=== PATIENT | female | born 1985 | race Caucasian/White ===

== ENCOUNTER 2016-12-19 07:40 | Emergency (ER) | payer SELFPAY ==
[~2016-12-19 07:40] MED LIST: ANEXSIA; COMPAZINE10 M PO; DARVOCET-N 1001 TAB; DARVOCET-N 1001 TAB PO; FLEXERIL10 MG; FLEXERIL10 MG PO; FLEXERIL5 MG PO; INDERAL LA120 MG; MAXALT10 MG; MOTRIN800 MG; MULTI-VITAMIN1 TAB; NAPROSYN500 MG; NORCO; NORCO 7.5/325 T1 TAB PO; PRENATAL VITAMI1 TAB; PROMETHAZINE25 MG PO; SKELAXIN800 MG PO; SYMBICORT 80/10.2 GM; SYNTHROID100 MCG PO; TYLENOL W/CODEI1 TA PO; TYLENOL W/CODEI1 TAB PO; ULTRAM50 MG PO; VISTARIL50 MG PO; VITAMIN D50000 UNIT PO; Vitamin B12 PO
[2016-12-19] MEDS ORDERED: NO HOME MEDICATION XX (07:45)
[2016-12-19] MEDS ORDERED: SYNTHROID (07:47)
[2016-12-19] MEDS ORDERED: DEPO-PROVE150 MG/1 M (07:47)
[2016-12-19] MEDS ORDERED: METFORMIN (07:47)
[2016-12-19 08:21] LABS: URINE BILIRUBIN SMALL (NEG); URINE BLOOD NEGATIVE (NEG); URINE GLUCOSE (UA) NEGATIVE (NEG); URINE KETONE NEGATIVE (NEG); URINE LEUKOCYTE ESTERASE NEGATIVE (NEG); URINE NITRITE NEGATIVE (NEG); URINE PROTEIN MODERATE (NEG)
[2016-12-19 08:22] LABS: URINE APPEARANCE HAZY; URINE COLOR DARK YELLOW
[2016-12-19 08:31] LABS: BASO % 0.1 % (0-2); EOS % 0.3 % (0-7); HCT-HEMATOCRIT 42.8 % (34.0-49.0); HGB-HEMOGLOBIN 15.1 gm/dl (12.0-15.5); IMMATURE GRANULOCYTES ABSOLUTE 0.02 tho/cmm (0-0.03); IMMATURE GRANULOCYTES PERCENT 0.3 % (0-0.3); LYMPH % 10.8 % (20-45); LYMPH ABSOLUTE COUNT 0.9 tho/cmm (0.8-4.5); MCHC MEAN CORPUSCULAR HGB CONC 35.3 % (32.0-36.0); MCV (MEAN CELL VOLUME) 90.7 fl (82.0-96.0); MEAN PLATELET VOLUME 10.8 cmc (9.4-12.4); MONO % 14.9 % (0-12); MONOCYTE ABSOLUTE COUNT 1.2 tho/cmm (0.0-1.2); NEUTROPHIL ABSOLUTE COUNT 5.8 tho/cmm (1.6-8.0); NEUTROPHIL-AUTOMATED 5.8 tho/cmm (1.6-8.0); NEUTROPHILS % 73.6 % (40-80); PLATELET COUNT 220 tho/cmm (150-450); RED BLOOD COUNT 4.72 mil/cmm (4.00-5.20); RED CELL DISTRIBUTION WIDTH 12.3 % (12.4-16.4); WHITE BLOOD COUNT 7.9 tho/cmm (4.0-10.0)
[2016-12-19 08:41] LABS: PREGNANCY-SERUM NEGATIVE (NEGATIVE)
[2016-12-19 08:42] LABS: URINE EPITHELIAL CELLS 20-30 /[HPF] (0-10)
[2016-12-19 08:43] LABS: URINE BACTERIA 1+; URINE RBC 0 /[HPF] (0-5); URINE WBC 0-2 /[HPF] (0-5)
[2016-12-19 08:45] LABS: ALB/GLOB RATIO 0.9 (0.8-2.0); ALBUMIN 3.9 g/dl (3.5-5.0); ALKALINE PHOSPHATASE 41 U/L (33-138); ALT/SGPT 34 U/L (12-78); ANION GAP 17 mmol/L (0-20); AST/SGOT 19 U/L (10-40); BILIRUBIN,TOTAL 1.2 mg/dl (0-1.5); BLOOD UREA NITROGEN 13 mg/dl (6-24); C-REACTIVE PROTEIN 7.4 mg/dl (0-0.9); CALCIUM 9.1 mg/dl (8.5-10.5); CARBON DIOXIDE-VENOUS 22 mmol/L (22-32); CHLORIDE 102 mmol/l (96-110); CREATININE 0.85 mg/dl (0.50-1.10); GLUCOSE 120 mg/dL (70-110); LIPASE 114 U/L (73-393); POTASSIUM 3.7 mmol/L (3.7-5.1); SODIUM 137 mmol/L (135-145); eGFR VALUE FOR BLACK >90 mL/Min
== END 2016-12-19 10:12 ==
LOC: EDMED 07:40
PROVIDERS: Emergency Medicine
DX: K52.9 Noninfective gastroenteritis and colitis, unspecified (principal); E28.2 Polycystic ovarian syndrome; Z90.89 Acquired absence of other organs; Z98.890 Other specified postprocedural states
CPT/HCPCS: J2405; J7030; Q9967